=== PATIENT | male | born 1975 | race Caucasian/White ===

== ENCOUNTER 2020-03-01 11:24 | Emergency (ER) | payer MEDICAID ==
--- NOTE | 2020-03-01 12:01 | EDM.PDOC ---
ED HPI GENERAL MEDICAL PROBLEM - General Chief Complaint: General Stated Complaint: TOOTH PAIN Time Seen by Provider: 03/01/20 12:00 Source of Information: Reports: Patient History Limitations: Reports: No Limitations - History of Present Illness Onset: Gradual Duration: Day(s): (2) Improves with: Reports: None Worsens with: Reports: None Associated Symptoms: Denies: Fever/Chills - Related Data Allergies Allergy/AdvReac Type Severity Reaction Status Date / Time No Known Allergies Allergy Verified 03/03/20 13:18 Home Meds: Home Meds Acetaminophen with Codeine [Acetaminophen-Cod #3] 1 each PO QID 7 Days #20 tablet 03/01/20 [Rx] clindamycin HCL [Cleocin HCl] 300 mg PO QID 10 Days #40 capsule 03/01/20 [Rx] Past Medical History - Past Health History Medical/Surgical History: Denies Medical/Surgical History Social & Family History - Tobacco Use Smoking Status *Q: Current Every Day Smoker Years of Tobacco use: 30 Packs/Tins Daily: 0.5 ED ROS GENERAL - Review of Systems Review Of Systems: See Below Constitutional: Denies: Fever HEENT: Reports: Dental Pain Respiratory: Denies: Shortness of Breath Cardiovascular: Denies: Chest Pain Endocrine: Reports: No Symptoms GI/Abdominal: Reports: No Symptoms Skin: Reports: No Symptoms ED EXAM, GENERAL - Physical Exam Exam: See Below Exam Limited By: No Limitations General Appearance: Alert Nose: Normal Inspection Throat/Mouth: Other (multiple caries) Head: Facial Swelling, Other (marked R cheek swelling and warmth) Respiratory/Chest: No Respiratory Distress Cardiovascular: Normal Peripheral Pulses Course - Vital Signs Last Recorded V/S: Last Vital Signs Temp 36.1 C 03/01/20 11:57 Pulse 96 03/01/20 11:57 Resp 14 03/01/20 11:57 BP 132/72 03/01/20 11:57 Pulse Ox 94 L 03/01/20 11:57 - Orders/Labs/Meds Meds: Medications Discontinued Medications Generic Name Dose Route Start Last Admin Trade Name Freq PRN Reason Stop Dose Admin Acetaminophen/Codeine Phosphate 1 tab 03/01/20 12:29 03/01/20 12:32 Tylenol With Codeine No.3 300mg/30mg PO 03/01/20 12:30 1 tab ONETIME ONE Administration Departure - Departure Time of Disposition: 14:00 Disposition: Home, Self-Care 01 Condition: Good Clinical Impression: Caries, Facial cellulitis - Discharge Information Prescriptions: Acetaminophen with Codeine [Acetaminophen-Cod #3] 1 each PO QID 7 Days #20 tablet clindamycin HCL [Cleocin HCl] 300 mg PO QID 10 Days #40 capsule Instructions: Tooth Injuries Referrals: PCP,None [Primary Care Provider] - Forms: ED Department Discharge Sepsis Event Note - Evaluation Sepsis Screening Result: No Definite Risk - Focused Exam Date Exam was Performed: 04/07/20 Time Exam was Performed: 08:09
[2020-03-01] MEDS ORDERED: Acetaminophen/Codeine 300-30 MG Tab PO ONE (12:29)
== END 2020-03-01 12:33 | disposition home or self-care (01) ==
LOC: JP.ED 11:24
DX: K02.9 Dental caries, unspecified (principal); L03.211 Cellulitis of face; F17.210 Nicotine dependence, cigarettes, uncomplicated; Z79.899 Other long term (current) drug therapy
CPT/HCPCS: 99282; A9270

== ENCOUNTER 2020-03-03 12:41 | Emergency (ER) | payer MEDICAID ==
--- NOTE | 2020-03-03 13:41 | EDM.PDOC ---
ED HPI GENERAL MEDICAL PROBLEM - General Chief Complaint: ENT Problem Stated Complaint: TOOTH PAIN Time Seen by Provider: 03/03/20 13:30 Source of Information: Reports: Patient History Limitations: Reports: No Limitations - History of Present Illness INITIAL COMMENTS - FREE TEXT/NARRATIVE: 44-year-old male who had a dental filling on the upper aspect of the left maxillary canine follow-up 4 days ago, a day later he started to have pain and swelling. He was seen in the emergency room Monday and started on clindamycin, despite taking the medication as prescribed he has got increased redness and swelling and edema forming up to the left eye. He called the dentist, he has an appointment for morning which is 2 days from now but they recommended he change the antibiotic and be reassessed. He has no fevers or chills. Onset: Gradual Duration: Day(s): (Symptoms have developed over the past 4 days) Location: Reports: Face (Left maxillary canines) Associated Symptoms: Denies: Fever/Chills Oral/Mouth Pain Score (Numeric/FACES): 3 - Related Data Allergies Allergy/AdvReac Type Severity Reaction Status Date / Time No Known Allergies Allergy Verified 03/03/20 13:18 Home Meds: Home Meds Acetaminophen with Codeine [Acetaminophen-Cod #3] 1 each PO QID 7 Days #20 tablet 03/01/20 [Rx] clindamycin HCL [Cleocin HCl] 300 mg PO QID 10 Days #40 capsule 03/01/20 [Rx] Past Medical History - Past Health History Medical/Surgical History: Denies Medical/Surgical History Social & Family History - Tobacco Use Smoking Status *Q: Light Tobacco Smoker Years of Tobacco use: 30 Packs/Tins Daily: 0.5 - Caffeine Use Caffeine Use: Reports: None - Recreational Drug Use Recreational Drug Use: No ED ROS ENT - Review of Systems Review Of Systems: See Below Constitutional: Denies: Fever, Chills, Malaise HEENT: Reports: Dental Pain, Other (Left facial swelling) Respiratory: Denies: Shortness of Breath GI/Abdominal: Reports: No Symptoms Skin: Reports: Erythema (Some erythema developing along with edema of the left cheek and periorbital area) Neurological: Reports: No Symptoms Psychiatric: Reports: No Symptoms ED EXAM, ENT - Physical Exam Exam: See Below Exam Limited By: No Limitations General Appearance: Alert, No Apparent Distress Eye Exam: Left Eye: Periorbital Changes (A small amount of periorbital edema and erythema has developed under the left eye) Mouth/Throat: Other (There is a defect in the upper anterior aspect of the left first maxillary canine and tenderness to palpation of the area.) Head: Facial Tenderness (Facial tenderness and slight swelling is developed in the nasolabial area of the left side of the face above the infected tooth) Respiratory/Chest: No Respiratory Distress Neurological: Alert, Oriented Course - Vital Signs Last Recorded V/S: Last Vital Signs Temp 98.0 F 03/03/20 13:17 Pulse 116 H 03/03/20 13:17 Resp 16 03/03/20 13:17 BP 108/75 03/03/20 13:17 Pulse Ox 97 03/03/20 13:17 - Re-Assessments/Exams Free Text/Narrative Re-Assessment/Exam: 03/03/20 13:39 This patient is almost certainly developing cellulitis and abscess formation above that canine, and penicillin 500 mg 4 times a day will be added to the clindamycin. He is to keep his dental appointment on , but can return sooner if worsening such as fever, vomiting the medication or increased swelling or pain. Departure - Departure Time of Disposition: 13:53 Disposition: Home, Self-Care 01 Clinical Impression: Abscess, dental - Discharge Information Instructions: Dental Abscess, [id number] Referrals: PCP,None [Primary Care Provider] - Forms: ED Department Discharge Care Plan Goals: Take penicillin along with clindamycin 4 times a day as prescribed and use anti- inflammatories such as ibuprofen or naproxen for pain while adding Tylenol with codeine for stronger pain relief if needed. Recheck at the dentist as scheduled , return sooner if worsening such as increased pain and swelling with fever or inability to take medications due to nausea or vomiting. Sepsis Event Note - Evaluation Sepsis Screening Result: No Definite Risk - Focused Exam Vital Signs: Vital Signs Temp Pulse Resp BP Pulse Ox 03/03/20 13:17 98.0 F 116 H 16 108/75 97 03/03/20 13:10 98.0 F 116 H 16 108/75 97 Date Exam was Performed: 03/03/20 Time Exam was Performed: 13:57
== END 2020-03-03 13:53 | disposition home or self-care (01) ==
LOC: JP.ED 12:41
DX: K04.7 Periapical abscess without sinus (principal); F17.210 Nicotine dependence, cigarettes, uncomplicated
CPT/HCPCS: 99282; 99283